=== PATIENT | female | born 1950 | race Caucasian/White ===

== ENCOUNTER 2019-11-18 15:17 | Inpatient (IN) ==
[2019-11-18] MEDS ORDERED: ONDANSETRON ODT 4 MG TABLET PO STA (15:42)
[2019-11-18] MEDS ORDERED: MAGNESIUM HYDROXIDE SUSP 30 ML UDCUP PO PRN (16:02)
[2019-11-18] MEDS ORDERED: ONDANSETRON 4 MG/2 ML VIAL IV PRN (16:02)
[2019-11-18 17:13] LABS: Basophils % 0.4 % (0.0-0.8); Eosinophils # 0.2 10*3/uL (0.0-0.87); Eosinophils % 2.1 % (0.00-10.9); Hematocrit 28.4 VOL% (35.7-47.0); Hemoglobin 8.9 GM/DL (12.0-16.0); Immature Granulocytes % 0.5 %; Immature Granulocytes Absolute 0.04 #; Lymphocytes # 0.6 10*3/uL (1.4-4.0); Lymphocytes % 8.2 % (21.3-54.2); Mean Corpuscular HGB Conc 31.3 GM/DL (32-36); Mean Corpuscular Volume 100.4 FL (87-102); Mean Platelet Volume 9.2 FL (9.6-12.0); Monocytes % 8.8 % (1.7-12.7); Platelet Count 207 T/CUMM (130-400); Red Blood Count 2.83 MC/CUMM (3.8-5.5); Red Cell Distribution Width 13.2 % (9.3-17.3); White Blood Count 7.7 T/CUMM (4-12)
[2019-11-18 17:40] LABS: Calcium 9.1 MG/DL (8.5-10.1); Osmolality,Calculated 275.8 MOS/KG (273-304)
[2019-11-18] MEDS ORDERED: MORPHINE 4 MG/1 ML VIAL IV PRN (20:51)
[2019-11-18] MEDS: LACTATED RINGERS 1,000 ML IV SCH (22:42)
[2019-11-19] MEDS: MORPHINE 4 MG/1 ML VIAL IV PRN (03:42)
[2019-11-19] MEDS: LACTATED RINGERS 1,000 ML IV SCH ×2 (07:13→07:16)
[2019-11-19] MEDS ORDERED: ROPIVACAINE 0.5% 30 ML VIAL ONE ×2 (07:15→10:54)
[2019-11-19] MEDS ORDERED: DEXAMETHASONE 4 MG/1 ML VIAL ONE (07:37)
[2019-11-19] MEDS: ASCORBIC ACID 500 MG TABLET PO SCH (08:54)
[2019-11-19] MEDS: FERROUS SULFATE 325 MG TABLET PO SCH (08:54)
[2019-11-19] MEDS: ESCITALOPRAM 10 MG TABLET PO SCH (08:54)
[2019-11-19] MEDS: CETIRIZINE 10 MG TABLET PO SCH (08:54)
[2019-11-19] MEDS: PANTOPRAZOLE 40 MG TABLET PO SCH (08:54)
[2019-11-19] MEDS ORDERED: ceFAZolin 1,000 MG VIAL ONE (09:23)
[2019-11-19] MEDS ORDERED: BACITRACIN OINT 0.9 GM PACK TOP ONE (09:46)
[2019-11-19] MEDS ORDERED: propofoL 200 MG/20 ML VIAL IV ONE (10:53)
[2019-11-19] MEDS ORDERED: GLYCOPYRROLATE 0.4 MG/2 ML VIAL ONE (10:54)
[2019-11-19] MEDS ORDERED: LIDOCAINE 1% 5 ML VIAL ONE (10:54)
[2019-11-19] MEDS ORDERED: PHENYLEPHRINE 1 MG/10 ML SYRINGE IV ONE (10:54)
[2019-11-19] MEDS ORDERED: fentaNYL 100 MCG/2 ML VIAL ONE (10:54)
[2019-11-19] MEDS ORDERED: SODIUM CHLORIDE 0.9% 250 ML IV ONE (10:54)
[2019-11-19] MEDS ORDERED: PHENYLEPHRINE 10 MG/1 ML VIAL IV ONE (10:54)
[2019-11-19] MEDS ORDERED: DEXMEDETOMIDINE 200 MCG/2 ML VIAL ONE (10:54)
[2019-11-19] MEDS ORDERED: SEVOFLURANE 1 UNIT/15 MINUTE INH ONE (10:55)
[2019-11-19] MEDS: ceFAZolin 1,000 MG in SYRINGE 1 EACH IV SCH (15:25)
[2019-11-19] MEDS: APIXABAN 2.5 MG TABLET PO SCH (20:16)
[2019-11-20] MEDS: ceFAZolin 1,000 MG in SYRINGE 1 EACH IV SCH
[2019-11-20] MEDS: MORPHINE 4 MG/1 ML VIAL IV PRN (00:58)
[2019-11-20 06:35] LABS: Basophils % 0.2 % (0.0-0.8); Eosinophils % 0.6 % (0.00-10.9); Hematocrit 24.4 VOL% (35.7-47.0); Hemoglobin 7.6 GM/DL (12.0-16.0); Immature Granulocytes % 0.3 %; Immature Granulocytes Absolute 0.02 #; Lymphocytes # 0.8 10*3/uL (1.4-4.0); Lymphocytes % 11.6 % (21.3-54.2); Mean Corpuscular HGB Conc 31.1 GM/DL (32-36); Mean Corpuscular Volume 100.4 FL (87-102); Mean Platelet Volume 10.2 FL (9.6-12.0); Monocytes % 11.6 % (1.7-12.7); Neutrophils % 75.7 % (38.7-73.9); Platelet Count 200 T/CUMM (130-400); Red Blood Count 2.43 MC/CUMM (3.8-5.5); Red Cell Distribution Width 12.9 % (9.3-17.3); White Blood Count 6.6 T/CUMM (4-12)
[2019-11-20] MEDS: ESCITALOPRAM 10 MG TABLET PO SCH (10:04)
[2019-11-20] MEDS: ATORVASTATIN 40 MG TABLET PO SCH (10:04)
[2019-11-20] MEDS: APIXABAN 2.5 MG TABLET PO SCH ×2 (10:04→21:03)
[2019-11-20] MEDS: FERROUS SULFATE 325 MG TABLET PO SCH (10:04)
[2019-11-20] MEDS: ASCORBIC ACID 500 MG TABLET PO SCH (10:05)
[2019-11-20] MEDS: PANTOPRAZOLE 40 MG TABLET PO SCH (10:05)
[2019-11-20] MEDS: CETIRIZINE 10 MG TABLET PO SCH (10:05)
[2019-11-20] MEDS: ZALEPLON 5 MG CAPSULE PO PRN (21:55)
[2019-11-21 07:00] LABS: Basophils % 0.2 % (0.0-0.8); Eosinophils # 0.2 10*3/uL (0.0-0.87); Eosinophils % 2.8 % (0.00-10.9); Hematocrit 24.8 VOL% (35.7-47.0); Hemoglobin 7.8 GM/DL (12.0-16.0); Immature Granulocytes % 0.3 %; Immature Granulocytes Absolute 0.02 #; Lymphocytes # 0.6 10*3/uL (1.4-4.0); Lymphocytes % 9.6 % (21.3-54.2); Mean Corpuscular HGB Conc 31.5 GM/DL (32-36); Mean Corpuscular Volume 99.2 FL (87-102); Mean Platelet Volume 10.2 FL (9.6-12.0); Neutrophils % 75.1 % (38.7-73.9); Platelet Count 230 T/CUMM (130-400); White Blood Count 6.2 T/CUMM (4-12)
[2019-11-21] MEDS: APIXABAN 2.5 MG TABLET PO SCH ×2 (09:37→20:26)
[2019-11-21] MEDS: FERROUS SULFATE 325 MG TABLET PO SCH (09:38)
[2019-11-21] MEDS: ASCORBIC ACID 500 MG TABLET PO SCH (09:38)
[2019-11-21] MEDS: ATORVASTATIN 40 MG TABLET PO SCH (09:38)
[2019-11-21] MEDS: PANTOPRAZOLE 40 MG TABLET PO SCH (09:38)
[2019-11-21] MEDS: ESCITALOPRAM 10 MG TABLET PO SCH (09:38)
[2019-11-21] MEDS: CETIRIZINE 10 MG TABLET PO SCH (09:38)
[2019-11-22] MEDS: PANTOPRAZOLE 40 MG TABLET PO SCH (09:26)
[2019-11-22] MEDS: FERROUS SULFATE 325 MG TABLET PO SCH (09:26)
[2019-11-22] MEDS: APIXABAN 2.5 MG TABLET PO SCH ×2 (09:26→20:58)
[2019-11-22] MEDS: ESCITALOPRAM 10 MG TABLET PO SCH (09:26)
[2019-11-22] MEDS: ATORVASTATIN 40 MG TABLET PO SCH (09:26)
[2019-11-22] MEDS: ASCORBIC ACID 500 MG TABLET PO SCH (09:26)
[2019-11-22] MEDS: CETIRIZINE 10 MG TABLET PO SCH (09:27)
[2019-11-22] MEDS: ZALEPLON 5 MG CAPSULE PO PRN (21:53)
[2019-11-23] MEDS: PANTOPRAZOLE 40 MG TABLET PO SCH (09:00)
[2019-11-23] MEDS: ASCORBIC ACID 500 MG TABLET PO SCH (09:00)
[2019-11-23] MEDS: CETIRIZINE 10 MG TABLET PO SCH (09:00)
[2019-11-23] MEDS: ATORVASTATIN 40 MG TABLET PO SCH (09:00)
[2019-11-23] MEDS: APIXABAN 2.5 MG TABLET PO SCH (09:00)
[2019-11-23] MEDS: FERROUS SULFATE 325 MG TABLET PO SCH (09:00)
[2019-11-23] MEDS: ESCITALOPRAM 10 MG TABLET PO SCH (09:00)
[2019-11-23 11:58] VITALS: BP 135/51
== END 2019-11-23 12:10 | disposition swing bed (61) | DRG 493 ==
LOC: EDUNIT# → N.ED 15:17 → N.EDINP 15:17 → N.3E 20:04
PROVIDERS: ADMIT Orthopaedic Surgery; ATTEND Orthopaedic Surgery

== ENCOUNTER 2021-10-20 09:56 | Inpatient (IN) ==
[2021-10-20] MEDS ORDERED: ALBUTEROL NEB SOLN 5 MG/ML 20 ML/BOTTLE CONT NEB STA (10:33)
[2021-10-20 10:47] LABS: Basophils % 0.4 % (0.0-0.8); Eosinophils # 0.1 10*3/uL (0.0-0.87); Eosinophils % 2.4 % (0.00-10.9); Hematocrit 39.9 VOL% (35.7-47.0); Hemoglobin 12.7 GM/DL (12.0-16.0); Immature Granulocytes % 0.4 %; Immature Granulocytes Absolute 0.02 #; Lymphocytes # 0.5 10*3/uL (1.4-4.0); Lymphocytes % 9.2 % (21.3-54.2); Mean Corpuscular HGB Conc 31.8 GM/DL (32-36); Mean Corpuscular Volume 90.7 FL (87-102); Mean Platelet Volume 10.5 FL (9.6-12.0); Monocytes # 0.2 10*3/uL (0.11-0.8); Monocytes % 3.6 % (1.7-12.7); Platelet Count 196 T/CUMM (130-400); Red Cell Distribution Width 15.2 % (9.3-17.3)
[2021-10-20 11:12] LABS: Alanine Aminotransferase 23 U/L (13-56); Albumin 3.2 G/DL (3.4-5.0); Alkaline Phosphatase 107 U/L (45-117); Aspartate Amino Transferase 28 U/L (0-37); Bilirubin,Total < 0.39 MG/DL (0.20-1.00); Blood Urea Nitrogen 20 MG/DL (7-18); Calcium 8.8 MG/DL (8.5-10.1); Carbon Dioxide 24 MMOL/L (21-32); Chloride 108 MMOL/L (98-107); Glucose 114 MG/DL (74-106); Osmolality,Calculated 278.7 MOS/KG (273-304); Potassium 3.9 MMOL/L (3.5-5.1); Sodium 138 MMOL/L (136-145); Total Protein 7.4 G/DL (6.4-8.2)
[2021-10-20] MEDS ORDERED: SODIUM CHLORIDE 0.9% 1,000 ML IV STA (11:56)
[2021-10-20] MEDS ORDERED: methylPREDNISolone SOD SUC 125 MG/2 ML VIAL IV STA (15:36)
[2021-10-20] MEDS ORDERED: LEVOFLOXACIN INJ 750 MG/150 ML PREMIX IV STA (15:38)
[2021-10-20] MEDS ORDERED: diphenhydrAMINE CAP 25 MG CAPSULE PO PRN (18:25)
[2021-10-20] MEDS ORDERED: ZALEPLON 5 MG CAPSULE PO PRN (18:25)
[2021-10-20] MEDS ORDERED: GLUCAGON 1 MG VIAL IM PRN (18:25)
[2021-10-20] MEDS ORDERED: NICOTINE 21 MG/24 HR PATCH TRANSDERM PRN (18:25)
[2021-10-20] MEDS ORDERED: ACETAMINOPHEN 325 MG TABLET PO PRN (18:25)
[2021-10-20] MEDS ORDERED: hydrALAZINE 20 MG/1 ML VIAL IV PRN (18:25)
[2021-10-20] MEDS ORDERED: DEXTROSE 10% 250 ML BAG IV PRN (19:13)
[2021-10-20] MEDS: ALBUTEROL/IPRATROPIUM 3 ML NEB RESP TX SCH ×2 (19:52→23:59)
[2021-10-20] MEDS: SODIUM CHLORIDE 0.9% 1,000 ML IV SCH (20:59)
[2021-10-20] MEDS: HEPARIN 5,000 UNIT/1 ML VIAL SUBCUT SCH (21:02)
[2021-10-21 03:49] LABS: Hematocrit 36.2 VOL% (35.7-47.0); Hemoglobin 11.7 GM/DL (12.0-16.0); Immature Granulocytes % 0.6 %; Immature Granulocytes Absolute 0.02 #; Lymphocytes # 0.2 10*3/uL (1.4-4.0); Lymphocytes % 4.9 % (21.3-54.2); Mean Corpuscular HGB Conc 32.3 GM/DL (32-36); Mean Platelet Volume 10.1 FL (9.6-12.0); Monocytes # 0.1 10*3/uL (0.11-0.8); Monocytes % 1.4 % (1.7-12.7); Neutrophils % 93.1 % (38.7-73.9); Platelet Count 179 T/CUMM (130-400); Red Blood Count 3.98 MC/CUMM (3.8-5.5); Red Cell Distribution Width 15.3 % (9.3-17.3); White Blood Count 3.5 T/CUMM (4-12)
[2021-10-21 04:13] LABS: Calcium 8.8 MG/DL (8.5-10.1); Osmolality,Calculated 286.3 MOS/KG (273-304); Potassium 3.7 MMOL/L (3.5-5.1)
[2021-10-21 04:49] LABS: Lymphocytes 5 % (20-55); Microcytosis Slight; Total Cells Counted 100
[2021-10-21 04:50] LABS: Ovalocytes Slight; Platelet Estimate Adequate
[2021-10-21] MEDS: ALBUTEROL/IPRATROPIUM 3 ML NEB RESP TX SCH ×3 (07:30→20:33)
[2021-10-21] MEDS: ESCITALOPRAM 10 MG TABLET PO SCH (09:23)
[2021-10-21] MEDS: HEPARIN 5,000 UNIT/1 ML VIAL SUBCUT SCH ×2 (09:23→21:13)
[2021-10-21] MEDS: ASPIRIN EC 81 MG TABLET PO SCH (09:23)
[2021-10-21] MEDS: ATORVASTATIN 40 MG TABLET PO SCH (09:24)
[2021-10-21] MEDS: guaiFENesin/DM ER 600-30 MG TABLET PO PRN (09:24)
[2021-10-21] MEDS: SODIUM CHLORIDE 0.9% 1,000 ML IV SCH ×2 (10:02→14:33)
[2021-10-21 10:13] LABS: Amorphous Crystals,Urine Occasional /HPF (Few); Bacteria,Urine Occasional /HPF (Few); Mucus,Urine Occasional /LPF (Occasional); Squamous Epithelial Cell,Urine Occasional /HPF (0-10)
[2021-10-21 10:14] LABS: Bilirubin,Urine Negative (Negative); Glucose,Urine (UA) Negative (Negative); Ketones,Urine Negative (Negative); Nitrite,Urine Negative (Negative); Protein,Urine Negative (Negative); Urine Appearance Clear (Clear); Urine Color Yellow (Yellow); Urine Specific Gravity 1.015 (1.001-1.035); Urine pH 6.5 (4.5-8.0)
[2021-10-21 10:15] LABS: Blood, Urine Trace mg/dL (Negative); Urine Urobilinogen 0.2 eU/dL (<2.0)
[2021-10-21] MEDS: DILTIAZEM CD 120 MG CAPSULE PO SCH (12:07)
[2021-10-21] MEDS: PIPERACILLIN/TAZOBACTAM 3,375 MG in SODIUM CHLORIDE 0.9% 100 ML IV SCH ×2 (12:07→18:49)
[2021-10-21] MEDS ORDERED: LEVOFLOXACIN INJ 750 MG/150 ML PREMIX IV SCH (17:00)
[2021-10-21] MEDS: FLUTICASONE 50 MCG NASAL SPRAY 16 GM BOTTLE BOTH NARES SCH ×2 (18:50→21:14)
[2021-10-22] MEDS: ALBUTEROL/IPRATROPIUM 3 ML NEB RESP TX SCH ×4 (00:52→19:30)
[2021-10-22] MEDS: SODIUM CHLORIDE 0.9% 1,000 ML IV SCH ×2 (02:51→03:48)
[2021-10-22] MEDS: PIPERACILLIN/TAZOBACTAM 3,375 MG in SODIUM CHLORIDE 0.9% 100 ML IV SCH ×3 (03:48→21:20)
[2021-10-22 04:55] LABS: Basophils % 0.5 % (0.0-0.8); Eosinophils # 0.1 10*3/uL (0.0-0.87); Eosinophils % 1.2 % (0.00-10.9); Hematocrit 33.4 VOL% (35.7-47.0); Hemoglobin 10.4 GM/DL (12.0-16.0); Immature Granulocytes % 0.7 %; Immature Granulocytes Absolute 0.03 #; Lymphocytes # 0.5 10*3/uL (1.4-4.0); Lymphocytes % 12.1 % (21.3-54.2); Mean Corpuscular HGB Conc 31.1 GM/DL (32-36); Mean Corpuscular Volume 93.3 FL (87-102); Mean Platelet Volume 10.5 FL (9.6-12.0); Monocytes # 0.2 10*3/uL (0.11-0.8); Monocytes % 4.9 % (1.7-12.7); Neutrophils % 80.6 % (38.7-73.9); Platelet Count 174 T/CUMM (130-400); Red Blood Count 3.58 MC/CUMM (3.8-5.5); Red Cell Distribution Width 15.3 % (9.3-17.3); White Blood Count 4.1 T/CUMM (4-12)
[2021-10-22 05:12] LABS: Calcium 8.8 MG/DL (8.5-10.1); Osmolality,Calculated 286.8 MOS/KG (273-304); Potassium 3.3 MMOL/L (3.5-5.1)
[2021-10-22] MEDS ORDERED: POTASSIUM CHLORIDE 20 MEQ TABLET PO ONE (07:36)
[2021-10-22] MEDS: DILTIAZEM CD 120 MG CAPSULE PO SCH (09:34)
[2021-10-22] MEDS: ASPIRIN EC 81 MG TABLET PO SCH (09:34)
[2021-10-22] MEDS: FLUTICASONE 50 MCG NASAL SPRAY 16 GM BOTTLE BOTH NARES SCH ×2 (09:35→21:21)
[2021-10-22] MEDS: ESCITALOPRAM 10 MG TABLET PO SCH (09:35)
[2021-10-22] MEDS: ATORVASTATIN 40 MG TABLET PO SCH (09:35)
[2021-10-22] MEDS: HEPARIN 5,000 UNIT/1 ML VIAL SUBCUT SCH ×2 (09:35→21:20)
[2021-10-22] MEDS: guaiFENesin/DM ER 600-30 MG TABLET PO PRN (21:26)
[2021-10-23] MEDS: PIPERACILLIN/TAZOBACTAM 3,375 MG in SODIUM CHLORIDE 0.9% 100 ML IV SCH ×2 (03:49→11:48)
[2021-10-23 06:00] LABS: Calcium 8.6 MG/DL (8.5-10.1); Osmolality,Calculated 284.1 MOS/KG (273-304); Potassium 3.5 MMOL/L (3.5-5.1)
[2021-10-23] MEDS: ALBUTEROL/IPRATROPIUM 3 ML NEB RESP TX SCH ×2 (07:58)
[2021-10-23] MEDS: HEPARIN 5,000 UNIT/1 ML VIAL SUBCUT SCH (09:02)
[2021-10-23] MEDS: ESCITALOPRAM 10 MG TABLET PO SCH (09:03)
[2021-10-23] MEDS: ATORVASTATIN 40 MG TABLET PO SCH (09:03)
[2021-10-23] MEDS: DILTIAZEM CD 120 MG CAPSULE PO SCH (09:03)
[2021-10-23] MEDS: ASPIRIN EC 81 MG TABLET PO SCH (09:03)
[2021-10-23] MEDS: FLUTICASONE 50 MCG NASAL SPRAY 16 GM BOTTLE BOTH NARES SCH (09:49)
[2021-10-23 10:36] VITALS: BP 119/73
== END 2021-10-23 12:18 | disposition home or self-care (01) | DRG 309 ==
LOC: N.EDINP 09:56 → N.ED 09:56 → SUATTDRO 20:07 → N.TELES 10-21 11:55
PROVIDERS: ADMIT Internal Medicine; ATTEND Internal Medicine